=== PATIENT | female | born 1950 | race American Indian/Alaskan Native ===

== ENCOUNTER 2017-07-16 12:58 | Outpatient (CLI) | payer MEDICARE | END 2017-07-16 12:59 | disposition home or self-care (01) | LOC: VAS 12:58 | PROVIDERS: ATTEND Internal Medicine Hematology & Oncology | DX: M79.661 Pain in right lower leg (principal); M79.662 Pain in left lower leg; M79.89 Other specified soft tissue disorders; C50.912 Malignant neoplasm of unspecified site of left female breast; R97.8 Other abnormal tumor markers | CPT/HCPCS: 93970 ==